=== PATIENT | female | born 1935 | race Caucasian/White ===

== ENCOUNTER → 2016-11-02 | Outpatient (CLI) | payer MEDICARE, OTHER ==
[~2016-11-02] MED LIST: ALENDRONATE SOD70 MG PO; ASPIRIN (CHILDR81 MG PO; BRILINTA60 MG PO; CITRACAL+D(315M1 TAB PO; COLACE100 MG PO; COREG6.25 MG PO; DRISDOL 5050000 UNIT PO; FISH OIL1000 MG PO; LIPITOR80 MG PO; METAXALONE800 MG PO; MIRALAX17 GM PO; MOTRIN600 MG PO; NITROSTAT0.4 MG SL; NORCO 5-325 TA1 EACH PO; PROTONIX40 MG PO; THERA-VITE W/ B1 TAB PO; ULTRAM50 MG PO; VASOTEC2.5 MG PO
--- NOTE | ~2016-11-02 | ESTC ---
Cardiac Perfusion Imaging Demographics Patient Name CHRISTOPHER PURI Gender Female R Patient Number [id number] Race Visit Number [id number] [place] [id number] Room Number Accession Number [id number] Height 68 inches Date of 1935 Weight 183 pounds Physician Interpreting [place] Eagle Date of study 11/02/2016 Physician MD Supervising /CHERRIE Dolan Technologist Ordering Physician Stress Thao RVT, fire range technician GARETH Fu Stress ECG Reading Jm Willis APRN Nurse Clarice Yen RN Physician The procedure was explained in detail to the patient. Risks, complications and alternative treatments were reviewed. Written consent was obtained. Medications Reviewed with Patient prior to Procedure. Procedure Procedure Type: Nuclear Stress Test:Pharmacological, Cardiolite Stress Test Procedure Start time: 11/02/2016 00:00 Indications: History of CAD and Chest pain. Risk Factors The patient risk factors include:prior PCI on 02/19/2015;prior CABG;former tobacco use, treated hypercholesterolemia, family history of premature CAD, dyslipidemia and prior MS . Conclusions Impression ECG portion of lxiscan stress test is clinically negative for ischemia by diagnostic criteria. Myocardial perfusion imaging is essentially normal. No evidence of convincing ischemia. The mild anterior wall matched defect is consistent with soft tissue attenuation. Overall left ventricular systolic function was normal without regional wall motion abnormalities. TID ratio is 1.26 and calculated LVEF is 71%. Stress Protocols Resting ECG Normal sinus rhythm. Pre-stress physical exam: Patient assessed by Ignacio CLAUDIO prior to testing. Chest - CTA Cardio - RRR, S1, S2 Predicted HR: 141 bpm HR response: Appropriate BP response: Appropriate Reason for termination:Infusion complete ECG Findings No ECG changes suggestive of ischemia. Arrhythmias No rhythm abnormality. Symptoms Shortness of breath. Neck Tightness Headache Complications Procedure complication: None. Stress Interpretation Appropriate hemodynamic response to Lexiscan. No significant ST-T wave changes with Lexiscan. ECG portion is negative for ischemia by diagnostic criteria. Will correlate with nuclear images. Imaging Results Summed scores - Summed stress score: 6 - Summed rest score: 5 - Summed difference score: 1 Stress ejection Ejection fraction:71 % EDV :72 ml ESV :21 ml Stroke volume :51 ml LV mass :99 gr Imaging Protocols Rest Stress Isotope:Tc99m Sestamibi IV Isotope: Tc99m Sestamibi IV Isotope dose:12.9 mCi Isotope dose:42 mCi Date:11/02/2016 07:40 Date:11/02/2016 09:53 Technique: SPECT Technique: Gated Supine SPECT Supine Scan Time:45-60 minutes post Scan Time:45-60 minutes post injection injection Procedure Medications - Regadenoson (Lexiscan) 0.4 mg IV over 10-15 sec. I.V. 0.4 mg. Medical History Admission Data Admission date: 11/02/2016 Admission Time: 07:22 Hospital Status: Outpatient. Signatures dtt: VERITO WONG dtd: 11/02/16 0000 Physician Self Edit
--- NOTE | ~2016-11-02 | ECHO ---
Transthoracic Echocardiography Report (TTE) Demographics Patient Name CHRISTOPHER, Date of Study 11/02/2016 KHUSHI Gurrola Patient Number [id number] Visit Number [id number] Date of 1935 Room Number Gender Female Number Age 81 year(s) Referring Eulalia Casas MD Coal Drier Operator Thao RVT, [facility] Physician Nickie Physician Interpreting Efstratiou Panayotis Yessenia Livestock Nutritionist Physician MD Supervising Ordering Efstratiou Panayotis Yessenia MD/MLP Physician MD Nurse Stress Director Of Curriculum And Instruction Conclusions Contractility Score Summary Normal Left Ventricular contractility was noted. Summary The estimated left ventricular ejection fraction is 60%. Mild concentric left ventricular hypertrophy. Diastolic assessment reveals Grade I diastolic dysfunction. Mild tricuspid regurgitation by color Doppler. Mild pulmonary hypertension. Estimated PA systolic pressure: 35 mmHg. Procedure Type of Study TTE procedure:2D Echocardiogram, M-Mode, Doppler , Color Doppler. Procedure Date Date: 11/02/2016 Start: 12:00 AM Study Location: Echo Lab Technical Quality: Fair Indications:Chest pain. Additional Indications:History of [place] Appropriate Use Criteria: 9 Patient Status: Routine HR: 64 bpm BP: 126/61 mmHg Allergies - No known allergies. M-Mode/2D Measurements LV Diastolic Dimension: 4.34 cm LV Systolic Dimension: 2.52 cm LV Septum Diastolic: 1.25 cm LV PW Diastolic: 1.21 cm AO Root Dimension: 2.3 cm LA Dimension: 2.7 cm LVOT: 2.1 cm RV Base: 2.91 cm RV Mid: 2.73 cm RV Length: 6.27 cm TAPSE: 3.59 cm TDI-S': 17.8 cm/s Doppler Measurements MV Peak E-Wave: 0.81 m/s MV Peak A-Wave: 1.15 m/s MV E/A Ratio: 0.7 TR Velocity:2.43 m/s MV P1/2t: 92 msec Estimated RAP:3 mmHg PV Peak Velocity: 0.75 m/s PV Peak Gradient: 2.25 mmHg Findings Left Ventricle Mild concentric left ventricular hypertrophy. Diastolic assessment reveals Grade I diastolic dysfunction. Right Ventricle Normal right ventricle structure and function. Left Atrium Normal left atrial size. Right Atrium Normal right atrial size. Mitral Valve Thickened mitral valve. Trivial mitral regurgitation by color Doppler. Borderline prolapse of the mitral valve. Aortic Valve The aortic valve is mildly sclerotic. Tricuspid Valve Mild tricuspid regurgitation by color Doppler. Mild pulmonary hypertension. Estimated PA systolic pressure: 35 mmHg. Pulmonic Valve Mild pulmonic valve regurgitation by color Doppler. Pericardial Effusion Trivial pericardial effusion. Pleural Effusion No evidence of pleural effusion. Contractility Score LV regional wall motion:(0-Non visualized 1-Normal 2-Hypokinesis 3-Akinesis 4-Dyskinesis 5-Aneurysm) Signature dtt: Ankita Collins dtd: 11/02/16 [facility] Physician Self Edit
== END | disposition disaster alternative care site (69) ==
LOC: GRAD 07:22
DX: I25.2 Old myocardial infarction (principal); E78.00 Pure hypercholesterolemia, unspecified; E78.5 Hyperlipidemia, unspecified; R53.83 Other fatigue; R07.9 Chest pain, unspecified; Z87.891 Personal history of nicotine dependence; Z82.49 Family history of ischemic heart disease and other diseases of the circulatory system; Z98.61 Coronary angioplasty status; Z95.1 Presence of aortocoronary bypass graft
CPT/HCPCS: A9500; J2785

== ENCOUNTER 2016-11-27 14:00 | Inpatient (IN) | payer MEDICARE, OTHER ==
[~2016-11-27] VITALS: Ht 170.2 cm; Wt 82.0 kg
--- NOTE | ~2016-11-27 | OR ---
[facility] AGE[facility] 81 Y [address] ROOM: [place] [address] LOCATION: [facility] ADMIT DATE: 12/04/2016 OR/Procedure Report DISCHARGE DATE: FAMILY PHYSICIAN: Juan Esteban MD ATTENDING PHYSICIAN: ROBY SPEAR SURGEON: Roby Spear MD LINGO CLEANER: MALCOLM Mcintyre and Rohit Nicolas CST/PASTE MAKER. DATE OF PROCEDURE: 12/04/2016 PRE-OP DIAGNOSIS: Primary degenerative joint disease, right knee. POST-OP DIAGNOSIS: Primary degenerative joint disease, right knee. OPERATION: Right total knee arthroplasty with computer navigation. ANESTHESIA: Spinal anesthesia plus adductor canal block plus periarticular local anesthesia(ropivacaine with epinephrine and Toradol). ESTIMATED BLOOD LOSS: Less than 10 mL. DRAIN: None. SPECIMEN: None. COMPLICATIONS: None. IMPLANT SYSTEM: Jassi Triathlon: Size 5 right posterior stabilized femoral component. Size 5 universal modular tibial baseplate. An 11 mm posterior stabilized size 5 X3 tibial polyethylene insert. A 35 mm oval X3 patella component (triple pegged). INDICATIONS FOR SURGERY: Zuleika Lyons is a 81-year-old female who presents with advanced right knee degenerative joint disease and associated severely compromised activities of daily living. The patient has decided to proceed with knee replacement after having been thoroughly counseled regarding the associated risks, benefits, and limitations. We have specifically reviewed the risks and implications of infection, deep venous thrombosis, pulmonary embolism, mortality, neurovascular complications, blood transfusion (and associated potential for disease transmission or transfusion reaction), stiffness, instability, mechanical deterioration of the components (due to wear and or loosening), and the potential need for revision. We have also emphasized the importance of active involvement and compliance with post- operative physical therapy as a means of optimizing range of motion and [facility] AGE: 81 Y [address] ROOM: [place] [address] LOCATION: [facility] ADMIT DATE: 12/04/2016 OR/Procedure Report DISCHARGE DATE: FAMILY PHYSICIAN: Juan Esteban MD ATTENDING PHYSICIAN: ROBY SPEAR functional recovery. Informed consent has been granted. DESCRIPTION OF PROCEDURE: The patient was positioned supine after administration of anesthesia and prophylactic antibiotics. A well-padded pneumatic tourniquet was placed around the right proximal thigh, and the right lower extremity was prepped and draped with vigilant sterile technique. The patient's name as well as the intended operative side and procedure were confirmed with a verbal time-out involving myself, the circulating nurse, the scrub nurse, and the anesthesiologist. Examination under anesthesia demonstrated no active skin lesions or masses. There was a moderate effusion. There was no erythema. There was no abnormal warmth. There was no deformity. Range of motion under anesthesia was from a 5-degree flexion contracture to 125 degrees of flexion. There was no ligamentous insufficiency. The right lower extremity was elevated and exsanguinated with an Esmarch wrap, and the pneumatic tourniquet was inflated to 300mmHg. The knee was approached through a longitudinal midline incision. A medial parapatellar arthrotomy was performed and the patella was everted. Examination of the joint space demonstrated a moderate amount of benign-appearing translucent synovial fluid. There were no loose bodies. There was no synovitis. There was significant thickening of the prepatellar bursa, but no inflammation thereof. Cruciate ligaments were intact. There were small osteophytes at the intercondylar notch. There was complex degenerative tearing of the medial meniscus with a large horizontal cleavage component. The lateral meniscus was intact. There was full-thickness loss of articular cartilage involving 60% of the medial femoral condyle and a 2 cm diameter region at the medial half of the medial tibial plateau. There was extensive grade 3 chondromalacia throughout the remainder of the medial compartment. There were large osteophytes at the medial femoral condyle and the anterior aspect of the medial tibial plateau. There were small osteophytes at the lateral femoral trochlea as well as the lateral femoral condyle. There were mild grade 3 degenerative changes involving a 1.5 cm diameter region at the distal aspect of the lateral femoral condyle. There were grade 2 degenerative changes at the medial half of the lateral tibial plateau. Remnants of the menisci and cruciate ligaments were excised. The Widetronix navigation femoral tracker was pinned in place at the distal aspect of the femoral trochlea. Absence of motion between the femur and the tracking device was confirmed manually and visually. Femoral osseous landmarks were obtained in order to calibrate the computer navigation system. Landmarks included the center of rotation of the ipsilateral hip, the center-point of the distal femur, the femoral AP axis, 57 points on the medial femoral condyle PATIENT'S NAME: ZULEIKA L[facility]ONS [facility] AGE: 81 Y [address] ROOM: [id number] [place], [place] [address] LOCATION: [facility] ADMIT DATE: 12/04/2016 OR/Procedure Report DISCHARGE DATE: FAMILY PHYSICIAN: Juan Esteban MD ATTENDING PHYSICIAN: ROBY SPEAR articular surface, and 57 points on the lateral femoral condyle articular surface. The b5media computer navigation system was subsequently utilized to position the distal femoral resection block such that the distal femoral resection was performed perfectly perpendicular to the femoral mechanical axis. The distal femoral resection was performed with a Stereomood oscillating saw. The b5media computer navigation tibial tracker was pinned in place at the anterior aspect of the tibial plateau. Absence of motion between the tibia and the tracking device was confirmed manually and visually. Tibial osseous landmarks were obtained in order to calibrate the computer navigation system. Landmarks included the center-point of the tibial plateau, the AP tibial axis, 57 points on the medial tibial plateau articular surface, 57 points on the lateral tibial plateau articular surface, the medial malleolus, and the lateral malleolus. The b5media computer navigation system was subsequently utilized to position the proximal tibial resection block such that the proximal tibial resection was performed perfectly perpendicular to the tibial mechanical axis. The proximal tibial resection was performed with a BIG Launcher Precision oscillating saw. Perpendicularity of the tibial resection with respect to the tibial shaft axis was reconfirmed by inserting a spacer- block attached to an extramedullary guide gabby. External rotation of the anterior and posterior femoral resections was set parallel to the epicondylar axis and carefully adjusted in order to create a rectangular flexion gap. The box resection was performed with a reciprocating saw. Anterior and posterior chamfer resections were performed with the oscillating saw. Posterior condyle osteophytes were excised with an osteotome. All other osteophytes were excised with a rongeur. Resection of all remnants of the menisci was reconfirmed. Flexion and extension gaps were confirmed to be symmetric and well balanced with a spacer-block technique. The patella resection was performed with an oscillating saw such that the composite thickness of the reconstructed patella was equivalent to the thickness of the eagle patella. Patella tracking was confirmed to be optimal and there was no need for a lateral retinacular release. All trial components were removed and all prepared osseous surfaces were thoroughly irrigated with pulsatile saline lavage and dried prior to cementing all three components in a single stage using [place] Simplex cement containing pre-mixed tobramycin. All extruded excess cement was removed. The entire joint space was thoroughly inspected and thoroughly irrigated with bacteriostatic pulsatile saline lavage to assure that there was no residual debris of any sort. Final range of motion was from full extension (with no passive hyperextension) PATIENT'S NAME: ZULEIKA LYONS [facility] AGE: 81 Y [address] ROOM: [address] [address] LOCATION: [facility] ADMIT DATE: 12/04/2016 OR/Procedure Report DISCHARGE DATE: FAMILY PHYSICIAN: Juan Esteban MD ATTENDING PHYSICIAN: ROBY SPEAR to 130 degrees of flexion. Patella tracking was reconfirmed to be optimal. There was excellent anteroposterior stability at 90 degrees of flexion. There was less than 1 mm of medial lift-off to valgus stress in full extension. There was 1 mm of lateral lift-off to varus stress in full extension. The arthrotomy was closed with multiple simple and [id number] interrupted #1 Vicryl. Subcutaneous tissues were thoroughly re-irrigated with bacteriostatic pulsatile saline lavage. Subcutaneous tissues were re- approximated with simple buried interrupted #0 Vicryl sutures. The skin was closed with simple buried interrupted 2-0 Vicryl sutures followed by surgical janeth. The dressing consisted of Xeroform gauze, 4x4 gauze, ABD pads and two 6-inch Christ Wraps. There were no intra-operative complications. It should be noted that the physician's treasury assistant played an active, integral role throughout this entire operation. By providing expert retraction, they greatly facilitated and expedited safe and effective exposure of the distal femur, proximal tibia and patella for preparation and implantation of the components. They were also actively involved in the patient's positioning, prepping and draping, as well as wound closure. MD ASA REYNA/aleksandr /[id number] d: 12/04/16 1631 t: 12/17/16 1310, OPERATIVE SUMMARY
--- NOTE | ~2016-11-27 | DS ---
PATIENT'S NAME: KHUSHI WHITE [facility] AGE: 81 Y [address] ROOM: [place] [address] LOCATION: [facility] ADMIT DATE: 12/04/2016 Discharge Summary DISCHARGE DATE: 12/06/2016 FAMILY PHYSICIAN: Juan Esteban MD ATTENDING PHYSICIAN: Presley Houston PRIMARY DIAGNOSIS: Degenerative joint disease of the right knee. SECONDARY DIAGNOSES: 1. Dyslipidemia. 2. Coronary artery disease. 3. Tobacco abuse. 4. Gastroesophageal reflux disease. 5. History of fractured vertebrae. 6. Osteoporosis. PROCEDURE PERFORMED: Right total knee arthroplasty. HISTORY: The patient is a 81-year-old female, who presents with advanced right knee degenerative joint disease and associated severely compromised activities of daily living. The patient has decided to proceed with total knee arthroplasty after having been thoroughly counseled regarding the risks, benefits, limitations and alternatives. Please refer to the outpatient clinic notes and admission history and physical for this patient. HOSPITAL COURSE: The patient underwent a right total knee arthroplasty on 12/04/2016 without complications. Spinal anesthesia plus adductor canal block plus periarticular local anesthesia was utilized. The patient received 24 hours of perioperative prophylactic antibiotics and remained hemodynamically stable, neurovascularly intact throughout the entire hospital course. The postoperative prophylactic deep venous thrombosis prophylaxis consisted of aspirin 81 mg, early mobilization and pneumatic compression devices. Daily physical therapy for gait training, transfer training range of motion and quadriceps isometric exercises were received. The patient progressed well in physical therapy. On the date of discharge, 12/06/2016, the incision at the knee was healing well and showed no signs of infection. DISPOSITION: Home. DISCHARGE ACTIVITY: The patient is to bear weight as tolerated with range of motion and quadriceps isometric exercises as instructed. The operative extremity is to be elevated at least 90% of the day. There is to be sterile 4x4 gauze dressings to the incision daily. Dr. Houston is to be notified immediately if there is any increased pain, fevers, chills erythema or drainage. PATIENT'S NAME: KHUSHI WHITE [facility] AGE: 81 Y [address] ROOM: [place] [address] LOCATION: [facility] ADMIT DATE: 12/04/2016 Discharge Summary DISCHARGE DATE: 12/06/2016 FAMILY PHYSICIAN: Juan Esteban MD ATTENDING PHYSICIAN: Presley Houston DISCHARGE MEDICATIONS: 1. Aspirin 81 mg 1 tablet p.o. daily for postoperative DVT prophylaxis. 2. Fiatt 5/325 mg 1 to 2 tablets p.o. every 4 hours p.r.n. for pain. 3. Neurontin 300 mg 1 tablet p.o. at night for 7 days for pain. She was then instructed to continue all her other pre-admission medications as instructed by her Internal Medicine doctor. FOLLOWUP: Followup appointment is to be with Dr. Houston on 12/11/2016 for initial postoperative evaluation with x-rays and staple removal of her right knee at that time. ELIZABETH MEJÍA PA-C FOR MD JACQUELINE REYNAW/isiahl /[id number] d: 12/11/16206 t: 12/11/16 0827, DISCHARGE SUMMARY
[~2016-11-27 14:00] MED LIST changes: -MIRALAX17 GM PO; -NORCO 5-325 TA1 EACH PO
[2016-12-06] MEDS ORDERED: COLACE100 MG PO (12:24)
[2016-12-06] MEDS ORDERED: MIRALAX17 GM PO (12:27)
[2016-12-06] MEDS ORDERED: NORCO 5-325 TA1 EACH PO (12:28)
== END 2016-12-06 18:20 | disposition disaster alternative care site (69) | DRG 470 ==
LOC: G3N 12-04 08:10
PROVIDERS: ADMIT Orthopaedic Surgery
PROC: 0SRC0J9 Replacement of Right Knee Joint with Synthetic Substitute, Cemented, Open Approach (ICD-10-PCS; principal; 2016-12-04)
DX: M17.11 Unilateral primary osteoarthritis, right knee (principal); I27.2 Other secondary pulmonary hypertension; E78.5 Hyperlipidemia, unspecified; G47.33 Obstructive sleep apnea (adult) (pediatric); M81.0 Age-related osteoporosis without current pathological fracture; Z87.81 Personal history of (healed) traumatic fracture; I25.10 Atherosclerotic heart disease of native coronary artery without angina pectoris; K21.9 Gastro-esophageal reflux disease without esophagitis; Z79.82 Long term (current) use of aspirin; Z85.828 Personal history of other malignant neoplasm of skin; Z91.19 Patient's noncompliance with other medical treatment and regimen
CPT/HCPCS: C1713; C1776; J0690; J1100; J1885; J2001; J2405; J2795; J7120